=== PATIENT | female | born 1980 | race Caucasian/White ===

== ENCOUNTER 2021-03-30 20:46 | Emergency (ER) | payer OTHER | END 2021-03-30 21:35 | disposition home or self-care (01) | LOC: ER1 20:46 | DX: R05 Cough (principal); R19.7 Diarrhea, unspecified; Z90.49 Acquired absence of other specified parts of digestive tract; Z79.899 Other long term (current) drug therapy; Z20.822 Contact with and (suspected) exposure to COVID-19 | CPT/HCPCS: 99283 ==

== ENCOUNTER → 2021-10-22 | Outpatient (CLI) | payer OTHER | LOC: KOH-I 10:39 | DX: M25.511 Pain in right shoulder (principal); S42.031A Displaced fracture of lateral end of right clavicle, initial encounter for closed fracture; S42.011A Anterior displaced fracture of sternal end of right clavicle, initial encounter for closed fracture | CPT/HCPCS: 73221 ==

== ENCOUNTER → 2022-01-06 | Day surgery (SDC) | payer OTHER ==
[~2022-01-06] VITALS: Ht 157.5 cm; Wt 93.0 kg
[~2022-01-06] MED LIST: ASPIRIN325 MG PO; HYDROCODON-ACE1 EAC4 PO; OXYCODONE HCL5 M1 PO; TRAMADOL HCL50 MG PO; VITAMIN D21250 MCG PO
[2022-01-06 10:25] LABS: HEMOGLOBIN 13.1 gm/dl (12.3-15.3); RED BLOOD COUNT 4.85 M/UL (4.00-5.10); WHITE BLOOD COUNT 12.7 K/UL (4.5-11.0)
[2022-01-06 10:49] LABS: BUN/CREATININE RATIO 13 (0-10)
== END | disposition home or self-care (01) ==
LOC: OR 09:35
PROVIDERS: Orthopaedic Surgery
DX: S82.851A Displaced trimalleolar fracture of right lower leg, initial encounter for closed fracture (principal); X50.1XXA Overexertion from prolonged static or awkward postures, initial encounter; Z88.0 Allergy status to penicillin
CPT/HCPCS: 36415; 73610; 76000; 80048; 85027; 93005; C1713; J0690; J0780; J1170; J2001; J2250; J2405; J2704; J2795; J3010; J7120